=== PATIENT | female | born 1995 | race American Indian/Alaskan Native ===

== ENCOUNTER 2017-04-21 19:31 | Emergency (ER) | payer SELFPAY ==
[2017-04-21 20:03] LABS: RBC URINE 3 /hpf (0-3); URINE BACTERIA OCC (<OCC); URINE BILIRUBIN NEGATIVE (NEGATIVE); URINE BLOOD NEGATIVE (NEGATIVE); URINE COLOR Yellow (YELLOW); URINE GLUCOSE (UA) NORMAL (Normal); URINE KETONE TRACE mg/dL (NEGATIVE); URINE LEUKOCYTE ESTERASE TRACE Leu/uL (Negative); URINE PROTEIN NEGATIVE (NEGATIVE); URINE UROBILINOGEN NORMAL mg/dL (0.2-1.0); WBC URINE 4 /hpf (0-5)
--- NOTE | 2017-04-21 20:04 | C.PDOC ---
History Of Present Illness Patient presents to the ED complaining of vaginal discharge for the past couple of days. Patient states she has been using a douche. She denies fever, chills, nausea or vomiting. Time Seen by Provider: 04/21/17 20:03 Chief Complaint (Nursing): Abdominal Pain History Per: Patient History/Exam Limitations: no limitations Onset/Duration Of Symptoms: Days (couple) Current Symptoms Are (Timing): Still Present Context: Other Severity: Mild Pain Scale Rating Of: 3 Location Of Pain/Discomfort: Other Radiation Of Pain To:: None Quality Of Discomfort: Other Exacerbating Factors: None Alleviating Factors: None Last Bowel Movement: Today Recent travel outside of the [place]: No Abnormal Vaginal Bleeding: No Past Medical History Reviewed: Historical Data, Nursing Documentation, Vital Signs Vital Signs: Last Vital Signs Temp 98.8 F 04/21/17 19:38 Pulse 102 H 04/21/17 19:38 Resp 18 04/21/17 19:38 BP 109/77 04/21/17 19:38 Pulse Ox 99 04/21/17 20:26 Family History: States: Unknown Family Hx - Social History Hx Alcohol Use: No Hx Substance Use: No - Immunization History Hx Tetanus Toxoid Vaccination: No Hx Influenza Vaccination: Yes Hx Pneumococcal Vaccination: No Review Of Systems Constitutional: Negative for: Fever, Chills Gastrointestinal: Negative for: Nausea, Vomiting Genitourinary: Positive for: Vaginal Discharge Physical Exam - Physical Exam Appears: Non-toxic, No Acute Distress Skin: Warm, Dry Gastrointestinal/Abdominal: Soft, No Tenderness, No Distention, No Rebound Back: Normal Inspection Pelvic: Normal Bimanual Exam, Vaginal Discharge (white-basilia, cheese like), No Cervical Motion Tenderness, No Cervix Open, No Adnexal Tenderness, No Tender Uterus Extremity: Normal ROM Gait: Steady ED Course And Treatment O2 Sat by Pulse Oximetry: 99 (room air) Pulse Ox Interpretation: Normal Progress Note: Plan: Diflucan, Urinalysis Disposition Counseled Patient/Family Regarding: Studies Performed, Diagnosis, Need For Followup - Disposition Referrals: Nini Head MD [Staff Provider] - Disposition: HOME/ ROUTINE Disposition Time: 20:04 Condition: FAIR Prescriptions: Fluconazole [Diflucan] 200 mg PO DAILY #5 ml Instructions: Vulvovaginal Candidiasis (ED) - Clinical Impression Clinical Impression: Vulvovaginal candidiasis - Scribe Statement The provider has reviewed the documentation as recorded by the Scribe Elizabeth Fiore Provider Attestation: All medical record entries made by the Scribe were at my direction and personally dictated by me. I have reviewed the chart and agree that the record accurately reflects my personal performance of the history, physical exam, medical decision making, and the department course for this patient. I have also personally directed, reviewed, and agree with the discharge instructions and disposition.
[2017-04-21 20:43] VITALS: BP 120/69; PULSE 87; RESP 20; TEMP 97.8; O2SAT 98
== END 2017-04-21 20:44 | disposition home or self-care (01) ==
LOC: C.ER 19:31
DX: B37.3 Candidiasis of vulva and vagina (principal)

== ENCOUNTER 2017-09-07 12:05 | Emergency (ER) | payer MEDICAID ==
[2017-09-07 12:23] VITALS: RESP 18; TEMP 97.8
[2017-09-07 13:06] LABS: RBC URINE < 1 /hpf (0-3); URINE BACTERIA FEW (<OCC); URINE BILIRUBIN NEGATIVE (NEGATIVE); URINE BLOOD NEGATIVE (NEGATIVE); URINE COLOR Amber (YELLOW); URINE GLUCOSE (UA) NORMAL (Normal); URINE KETONE NEGATIVE (NEGATIVE); URINE LEUKOCYTE ESTERASE 1+ Leu/uL (Negative); URINE PROTEIN NEGATIVE (NEGATIVE); WBC URINE 11 /hpf (0-5)
[2017-09-07] MEDS ORDERED: cefTRIAXone (Rocephin) 250 mg Inj IM STA (13:14)
--- NOTE | 2017-09-07 13:49 | C.PDOC ---
History Of Present Illness 22 year old female presents to the ER with a complaint of whitish sticky vaginal discharge, associated with itchiness for 2-3 days. Denies fever or vaginal bleeding. Time Seen by Provider: 09/07/17 12:34 Chief Complaint (Nursing): Female Genitourinary History Per: Patient History/Exam Limitations: no limitations Onset/Duration Of Symptoms: Days Current Symptoms Are (Timing): Still Present Associated Symptoms: denies: Fever, Other (Vaginal bleeding) Alleviating Factors: None Recent travel outside of the [place]: No Abnormal Vaginal Bleeding: No Past Medical History Reviewed: Historical Data, Nursing Documentation, Vital Signs Vital Signs: Last Vital Signs Temp 97.8 F 09/07/17 12:19 Pulse 89 09/07/17 14:00 Resp 18 09/07/17 14:00 BP 120/72 09/07/17 14:00 Pulse Ox 96 09/07/17 20:05 - Medical History PMH: No Chronic Diseases Surgical History: No Surg Hx Family History: States: Unknown Family Hx - Social History Hx Alcohol Use: No Hx Substance Use: No - Immunization History Hx Tetanus Toxoid Vaccination: No Hx Influenza Vaccination: Yes Hx Pneumococcal Vaccination: No Review Of Systems Constitutional: Negative for: Fever Genitourinary: Positive for: Vaginal Discharge, Other (Vaginal itch). Negative for: Vaginal Bleeding Physical Exam - Physical Exam Appears: Non-toxic, No Acute Distress Skin: Normal Color, Warm, Dry Head: Atraumatic, Normacephalic Eye(s): bilateral: Normal Inspection Oral Mucosa: Moist Chest: Symmetrical Cardiovascular: Rhythm Regular Respiratory: Normal Breath Sounds, No Accessory Muscle Use Gastrointestinal/Abdominal: Soft, No Tenderness Pelvic: Normal External Exam, Vaginal Discharge (Whitish discharge with foul smelling odor) Neurological/Psych: Oriented x3, Normal Speech, Normal Cognition ED Course And Treatment O2 Sat by Pulse Oximetry: 96 (Room air) Pulse Ox Interpretation: Normal Medical Decision Making Medical Decision Making: GC and chlamydia and urinalysis were sent. Rocephin and urinalysis ordered. Patient discharged home with Rx and instructions to follow up with PMD. Disposition - Disposition Referrals: Nini Head MD [Staff Provider] - Disposition: HOME/ ROUTINE Disposition Time: 13:49 Condition: GOOD Additional Instructions: Follow up with the OBGYN within 1-2 days. return if worsened. Prescriptions: Fluconazole [Diflucan] 150 mg PO ONCE #2 tab Metronidazole [Metrogel] 60 gm TP DAILY #2 gel..gram. Instructions: Bacterial Vaginosis (ED) Forms: [facility] (Kiswahili) - Clinical Impression Clinical Impression: Potential exposure to STD, Vaginitis - Scribe Statement The provider has reviewed the documentation as recorded by the Scribbecky Thomas All medical record entries made by the Scribe were at my direction and personally dictated by me. I have reviewed the chart and agree that the record accurately reflects my personal performance of the history, physical exam, medical decision making, and the department course for this patient. I have also personally directed, reviewed, and agree with the discharge instructions and disposition.
[2017-09-07 14:46] VITALS: BP 120/72; PULSE 89
[2017-09-07 20:00] VITALS: O2SAT 96
== END 2017-09-07 15:10 | disposition home or self-care (01) ==
LOC: C.ER 12:05
DX: N76.0 Acute vaginitis (principal); Z20.2 Contact with and (suspected) exposure to infections with a predominantly sexual mode of transmission
CPT/HCPCS: 81001; 84703; 87491; 87591; 96372; 99284; J0696